=== PATIENT | male | born 1985 | race Two or more races ===

== ENCOUNTER 2018-08-04 15:33 | Emergency (ER) | payer MEDICAID, OTHER ==
[~2018-08-04] VITALS: Ht 172.7 cm; Wt 113.4 kg
[2018-08-04] MEDS ORDERED: ACETAMINOPHEN 325 MG TAB PO ONE (16:00)
[2018-08-04 16:15] VITALS: BP 141/97
[2018-08-04] MEDS ORDERED: ACETAMINOPHEN 500 MG TAB PO ONE (17:00)
[2018-08-04] MEDS ORDERED: cefTRIAXone SOD 1,000 MG VL IM ONE (17:15)
[2018-08-04] MEDS ORDERED: methylPREDNISolone SOD SUCC 125 MG/2 ML VL IM ONE (17:15)
== END 2018-08-04 17:35 | disposition home or self-care (01) ==
LOC: ER 15:33 → EDBD 15:33 → ER 17:35
DX: J03.90 Acute tonsillitis, unspecified (principal); J20.9 Acute bronchitis, unspecified
CPT/HCPCS: 71046; 96372; 99283; J0696; J2930

== ENCOUNTER 2020-02-29 21:35 | Emergency (ER) | payer MEDICAID ==
[~2020-02-29] VITALS: Ht 172.7 cm; Wt 117.9 kg
[2020-02-29 23:49] VITALS: BP 159/106
== END 2020-03-01 00:32 | disposition home or self-care (01) ==
LOC: ER 21:40
DX: S23.41XA Sprain of ribs, initial encounter (principal); X58.XXXA Exposure to other specified factors, initial encounter; Y93.89 Activity, other specified; Y92.89 Other specified places as the place of occurrence of the external cause; Y99.8 Other external cause status
CPT/HCPCS: 71101

== ENCOUNTER 2022-02-09 00:49 | Emergency (ER) | payer MEDICAID | END 2022-02-09 00:50 | disposition left against medical advice (07) | LOC: ER 00:49 | DX: R51.9 Headache, unspecified (principal); Z53.21 Procedure and treatment not carried out due to patient leaving prior to being seen by health care provider ==